=== PATIENT | female | born 1990 | race Native Hawaiian/Other Pacific Islander ===

== ENCOUNTER 2021-03-24 06:41 | Emergency (ER) | payer OTHER ==
[~2021-03-24] VITALS: Ht 170.2 cm; Wt 99.8 kg
[2021-03-24 07:00] VITALS: TEMP 98.9
[2021-03-24 07:49] VITALS: BP 122/82
== END 2021-03-24 07:49 | disposition home or self-care (01) ==
LOC: ED 06:41
DX: G43.909 Migraine, unspecified, not intractable, without status migrainosus (principal)
CPT/HCPCS: 96372; 99283; J1200; J1885; J2405

== ENCOUNTER 2021-03-24 15:36 | Emergency (ER) | payer OTHER ==
[~2021-03-24] VITALS: Ht 170.2 cm; Wt 99.8 kg
[2021-03-24 15:36] VITALS: BP 134/89; TEMP 99.3
== END 2021-03-24 15:57 | disposition home or self-care (01) ==
LOC: ED 15:36
DX: Z53.21 Procedure and treatment not carried out due to patient leaving prior to being seen by health care provider (principal)
CPT/HCPCS: 99281